=== PATIENT | male | born 1960 | race Caucasian/White ===

== ENCOUNTER 2022-04-09 12:21 | Outpatient (CLI) | payer BC | END 2022-04-09 12:22 | disposition home or self-care (01) | LOC: TBSIIMAG 12:21 | PROVIDERS: ATTEND Nurse Practitioner Family | DX: M51.16 Intervertebral disc disorders with radiculopathy, lumbar region (principal); M48.061 Spinal stenosis, lumbar region without neurogenic claudication; M48.07 Spinal stenosis, lumbosacral region; M48.05 Spinal stenosis, thoracolumbar region | CPT/HCPCS: 72148 ==